=== PATIENT | male | born 1940 | race Caucasian/White ===

== ENCOUNTER 2016-08-05 13:48 | Inpatient (IN) | payer OTHER ==
--- NOTE | ~2016-08-05 | DS ---
Discharge Summary [facility] [address] [facility] [place]. [address] NAME: CIPRIANO BOOKER : 42 STATUS : DIS IN PAT#: [id number] AGE: 76 ADM/REG DATE : 08/05/16 MR#: [id number] REPORT SERV DATE: 08/24/16 DICTATED BY: PHAN LEYVA DATE: 08/22/16 REPORT STATUS : Draft TRANSCRIBED BY: LUKASZ DATE: 08/22/16 Data Collection from hospitalization DISCHARGE DIAGNOSES: 1. Severe peripheral vascular disease, status post right smfup-lsu-xzai amputation secondary to ischemia/right lower extremity. 2. End-stage renal disease, on hemodialysis. 3. Anemia secondary to end-stage renal disease. 4. Type 2 diabetes mellitus - not controlled. 5. Debility/gait impairment, status post right above-knee amputation. 6. Coronary artery disease. 7. History of congestive heart failure. 8. History of melanoma - status post resection. 9. History of hyperlipidemia. 10.Chronic obstructive pulmonary disease. 11.Tobacco use. 12.History of remote myocardial infarction. 13.Peptic ulcer disease. 14.History of left vocal cord cancer, status post radiation. 15.Osteoarthritis. CONSULTATIONS: 1. Nestor Harper M.D. 2. CALI Lomax. PROCEDURES PERFORMED: 1. Antegrade right superficial femoral artery catheterization with right lower extremity runoff, selective catheterization of the right SFA and popliteal artery with direct arteriography, atherectomy of the right superficial femoral artery with CSI 2.0 catheter with secondary angioplasty 6 x 200 balloon on 08/05/2016. 2. Right jzntd-fww-dzvk amputation on 08/08/2016. PATHOLOGY: Right lower extremity above-knee amputation - gangrenous necrosis secondary to occlusive calcified peripheral vascular disease with organizing thrombosis, skin and soft tissue and marrow margins - negative for neutrophilic infiltration. MEDICATIONS: Aspirin 81 mg daily; Lipitor 20 mg at bedtime; PhosLo three tablets with meals; Coreg 3.125 mg at bedtime; ferrous sulfate 650 mg twice a day; heparin 5000 units subcutaneously every 12 hours as instructed; NovoLog injection insulin as instructed; Claritin 10 mg at bedtime; Mag-Ox 400 mg on Sundays, Tuesdays, , and Saturdays; Habitrol 21 mg topically at 9:00 p.m.; Prilosec 40 mg daily; thalidomide 100 mg every evening; Dialyvite one tablet every day at bedtime; Tylenol 650 mg twice a day as needed; Benadryl 25 mg at bedtime as needed; ProAir one puff via inhaler twice a day as needed; Ultram 25 mg at bedtime as needed; and Levaquin 500 mg every 48 hours for four doses. CONDITION AT DISCHARGE: Stable. DISPOSITION: The patient was discharged to [facility] on a diabetic Discharge Summary [address] [address] NAME: CIPRIANO BOOKER : 42 STATUS : DIS IN PAT#: [id number] AGE: 76 ADM/REG DATE : 08/05/16 MR#: [id number] REPORT SERV DATE: 08/24/16 DICTATED BY: PHAN LEYVA DATE: 08/22/16 REPORT STATUS : Draft TRANSCRIBED BY: LUKASZ DATE: 08/22/16 diet with activities as instructed. HOSPITAL COURSE: This is a 76-year-old man who presented with evidence of critical limb ischemia of the right lower extremity with inability to sleep, rest pain, and gangrene of the foot. Treatment options were discussed and it was elected to proceed with surgical intervention. He was admitted to the hospital at this time for further evaluation and treatment. Upon admission, he was taken to the operating room where he underwent the above-mentioned procedure. He tolerated this well, and there were no complications. The following day, the right leg was ischemic. His thigh was cool. His calf was cold as well as his foot. Capillary refill was greater than 3 seconds. The patient was seen by Saba Loya. Creatinine level was 4.04. Hemodialysis therapy was going to be performed. He does have end-stage renal disease. On 08/08/2016, the patient was taken to the operating room where he underwent the above-mentioned procedure. He tolerated this well, and there were no complications. The patient was seen by Dr. Nestor Harper, he had been asked to see the patient regarding medical management. Creatinine level was now 5.67. The patient was receiving aspirin and Plavix. He denied any complaints of anxiety. He is a diabetic, but is diet controlled. White count was 12. Chest x-ray had shown interval improvement in central venous congestion. We would monitor his renal function. The patient was going to be placed on a diabetic renal diet. Medical management continued. The patient was currently on Ancef. He did have a low-grade fever of 100.4. Protonix was continued. The head of his bed would be kept elevated at greater than 30 degrees. He was felt to be at risk for aspiration. Urinalysis was pending. On 08/09/2016, hemodialysis therapy was performed. He said that his legs felt better. His pain had resolved from the ischemic foot. He was evaluated by Occupational and Physical Therapy. On 08/10/2016, he had no new complaints. Creatinine was 4.28. White blood cell count was 12. Over the next couple of days, discharge planning was performed. His incisions remained clean, dry, and intact. On 08/12/2016, hemodialysis therapy was performed. He had no new complaints. Discharge instructions were given. Due to his improved and stable condition, he was discharged to [facility] with the above-stated instructions. Information collected by: Anita Ospina I submit the above information as my discharge summary. MARTIN/LUKASZ Phan Leyva M.D. / [id number] CC: Mayo Dick M.D. Jessica Craig [facility] Discharge Summary [address] [address] NAME: CIPRIANO BOOKER : 41 STATUS : DIS IN PAT#: [id number] AGE: 76 ADM/REG DATE : 08/05/16 MR#: [id number] REPORT SERV DATE: 08/24/16 DICTATED BY: PHAN LEYVA DATE: 08/22/16 REPORT STATUS : Draft TRANSCRIBED BY: LUKASZ DATE: 08/22/16 [facility]
--- NOTE | ~2016-08-05 | OP ---
Record Of Operation [facility] [address] [place]. [address] NAME: CIPRIANO BOOKER : 42 STATUS : DIS IN PAT#: [id number] AGE: 76 ADM/REG DATE : 08/05/16 MR#: [id number] REPORT SERV DATE: 08/15/16 DICTATED BY: PHAN LEYVA DATE: 08/15/16 REPORT STATUS : Draft TRANSCRIBED BY: MODL DATE: 08/15/16 DATE OF PROCEDURE: 08/05/2016 PREPROCEDURE DIAGNOSIS: Critical limb ischemia of the right foot, right lower extremity with gangrene right foot. POSTOPERATIVE DIAGNOSES: 1. Multilevel superficial femoral artery occlusion. 2. Multilevel tibial obstruction, unreconstructable. PROCEDURES PERFORMED: 1. Antegrade right superficial femoral artery catheterization with right lower extremity runoff. 2. Selective catheterization of the right SFA and popliteal artery with direct arteriography. 3. Atherectomy of the right superficial femoral artery with a CSI 2.0 catheter with secondary angioplasty 6 x 200 balloon. ANESTHESIA: Local MAC. COMPLICATIONS: None. INDICATION FOR PROCEDURE: Secondary to this very pleasant 76-year-old gentleman presenting with evidence of critical limb ischemia of the right lower extremity with inability to sleep, rest pain, and gangrene of the foot. Recommendations were made for arteriography to further define his peripheral vascular repair if appropriate. Risks and benefits were discussed. Consent was obtained. DETAILS OF PROCEDURE: The patient was brought to the endovascular operating room, placed in supine position, prepped and draped in routine sterile fashion with attention to the right lower extremity. The right superficial femoral artery was then catheterized with ultrasound guidance. Pictures were taken and placed on the chart. Wire was then placed followed by a sheath. Arteriogram was then demonstrated patent proximal SFA, but the mid segment and distal SFA as well as proximal popliteal had evidence of complete segmental obstructions in the order of 95% to 99%. The wire and catheter were then advanced across the popliteal level, arteriogram demonstrated poor flow. Heparinization was given, 3000 units. A bipolar wire was then placed, and atherectomy was performed of the mid and distal SFA and proximal popliteal with a CSI catheter 2.0 with standard technique followed by a 6 x 200 balloon angioplasty. This adequately opened the mid and distal SFA and proximal popliteal. At this point, the catheter was then advanced to the below-knee popliteal segment. Arteriogram demonstrated occlusion of the anterior tibial artery very proximally, tibioperoneal trunk was occluded. There was no flow seen in the distal branch other than a very diminutive peroneal artery which was highly obstructed. At this point, I felt that there was literally no way to progress further for limb salvage for this patient. At this point, wires, catheters, and sheaths were then removed. The right groin was closed with Angio-Seal. The patient tolerated the procedure well. Record Of Operation [facility] [address] [facility] [place]. [address] NAME: CIPRIANO BOOKER : 42 STATUS : DIS IN PAT#: [id number] AGE: 76 ADM/REG DATE : 08/05/16 MR#: [id number] REPORT SERV DATE: 08/15/16 DICTATED BY: PHAN LEYVA DATE: 08/15/16 REPORT STATUS : Draft TRANSCRIBED BY: LUKASZ DATE: 08/15/16 CL/LUKASZ Phan Leyva M.D. / [id number] CC: Mayo Dick M.D.
--- NOTE | ~2016-08-05 | OP ---
Record Of Operation [facility] [address] [place]. [address] NAME: CIPRIANO BOOKER : 42 STATUS : DIS IN PAT#: [id number] AGE: 76 ADM/REG DATE : 08/05/16 MR#: [id number] REPORT SERV DATE: 08/15/16 DICTATED BY: PHAN LEYVA DATE: 08/15/16 REPORT STATUS : Draft TRANSCRIBED BY: MODL DATE: 08/15/16 DATE OF PROCEDURE: 08/08/2016 PREOPERATIVE DIAGNOSIS: Gangrene right lower extremity unreconstructable vascular disease. POSTOPERATIVE DIAGNOSIS: Gangrene right lower extremity unreconstructable vascular disease. PROCEDURE PERFORMED: Right qrjde-idb-dxbp amputation. SURGEON: Phan Leyva M.D. ANESTHESIA: General. COMPLICATIONS: None. INDICATION FOR PROCEDURE: Secondary to this very pleasant 76-year-old gentleman presenting with progressive gangrene of the right foot despite attempted endovascular reconstruction. Recommendations were made for right ypnbg-nhc-tyci amputation. Risks and benefits discussed. Consent was obtained. DETAILS OF PROCEDURE: The patient was brought to the endovascular operating room, placed in supine position, prepped and draped in routine sterile fashion with attention to the bilateral groin region and the entire right lower leg. A curvilinear incision was then made just above the level of the knee after general anesthesia was introduced. Dissection proceeded down through the skin, subcu tissues to the femur. Femur was then skeletonized. Femur was then divided in two with a good result in a 90-degree angle. Next, the neurovascular bundle was then clamped proximally, distally, and divided, and the posterior flap was then created. At this point, the specimen was passed off the field. The arterial and venous segments were then doubly ligated individually as well as the sciatic nerve was then ligated and then anesthetized with 1% lidocaine. The bone was then rasped smooth. All bleeding was arrested with a cautery, and then the leg was washed copiously. A second round of cauterization was then performed drawing up minor bleeding. A myopexy was then performed over top of the femur to cover the bone adequately with multiple Vicryl sutures. Next, the deep layers were then closed with Vicryl and then aziza were then placed along the wound. The wound had adequate hemostasis. Standard dressings were applied. The patient tolerated the procedure well. CL/MODL Phan Leyva M.D. / [id number] Record Of Operation [address] [address] NAME: CIPRIANO BOOKER : 42 STATUS : DIS IN PAT#: [id number] AGE: 76 ADM/REG DATE : 08/05/16 MR#: [id number] REPORT SERV DATE: 08/15/16 DICTATED BY: PHAN LEYVA DATE: 08/15/16 REPORT STATUS : Draft TRANSCRIBED BY: LUKASZ DATE: 08/15/16 CC: Mayo Dick M.D.
--- NOTE | ~2016-08-05 | CN ---
Consultation Report [facility] [address] [place]. [address] NAME: CIPRIANO BOOKER : 42 STATUS : ADM IN PAT#: [id number] AGE: 76 ADM/REG DATE : 08/05/16 MR#: [id number] REPORT SERV DATE: 08/08/16 DICTATED BY: GRACIE CARRANZA DATE: 08/08/16 REPORT STATUS : Draft TRANSCRIBED BY: MODL DATE: 08/08/16 CONSULT FOR MEDICAL MANAGEMENT. DATE OF CONSULTATION: CHIEF COMPLAINT: Right msffa-ykr-xklu amputation. HISTORY OF PRESENT ILLNESS: The patient is a 76 years old elderly male with a history of severe peripheral vascular disease, was admitted on 08/05/[address] Phan Leyva, vascular surgeon, for revascularization of his right lower extremity peripheral vascular disease with claudication. The patient continued to have an ischemic right lower extremity, therefore, underwent right auwsw-tck-usjh amputation today on 08/08/2016. The patient with history of COPD, congestive heart, coronary artery disease status post CABG, and diabetes. We were consulted by Dr. Leyva for medical management of this patient. ALLERGIES: INCLUDE GUAIFENESIN, DEXTROMETHORPHAN (FROM ROBAFEN DM COUGH/CHEST CONGESTION). MEDICATIONS: Currently on 1. Aspirin 81 mg daily. 2. Atorvastatin 20 mg q.h.s. 3. Calcium acetate 2000 mg p.o. with meals. 4. Coreg 3.125 mg p.o. q.h.s. 5. Ancef 2 g IV q.8 hours x2 doses. 6. Plavix 75 mg daily. 7. Diazepam 2.5 mg IV q.6. 8. Lovenox 30 mg subcu q.24 hours. 9. Famotidine 20 mg p.o. q.a.m. 10.Ferrous sulfate 600 mg p.o. b.i.d. 11.Insulin aspart sliding scale level 1. 12.Loratadine 10 mg q.h.s. 13.Magnesium oxide 400 mg p.o. Friday, Friday, , Friday, at 2100 hours. 14.Multivitamin without minerals one tab p.o. q.h.s. 15.Protonix 40 mg p.o. before breakfast. PAST MEDICAL HISTORY: To include: 1. End-stage renal disease, on hemodialysis, with [facility] since 2013. 2. Anemia secondary to chronic kidney disease. 3. Coronary artery disease, status post CABG in 2013 with mitral valve replacement. 4. Congestive heart failure. 5. Type 2 diabetes, diet controlled. 6. History of melanoma with resection. Consultation Report [facility] [id number] [place]. [address] NAME: CIPRIANO BOOKER : 42 STATUS : ADM IN PAT#: [id number] AGE: 76 ADM/REG DATE : 08/05/16 MR#: [id number] REPORT SERV DATE: 08/08/16 DICTATED BY: GRACIE CARRANZA DATE: 08/08/16 REPORT STATUS : Draft TRANSCRIBED BY: LUKASZ DATE: 08/08/16 7. History of hyperlipidemia. 8. COPD with ongoing tobacco abuse. 9. Peptic ulcer disease. 10.History of left vocal cord cancer, status post radiation. 11.Remote myocardial infarction. 12.Osteoarthritis. 13.Debility. SURGICAL HISTORY: 1. CABG and mitral valve repair in 2013, fistula for dialysis in 2013, right lower leg stent. 2. Cataract surgery bilaterally. 3. Skin cancer removal. 4. AOG right lower extremity runoff on 01/11/2008. 5. AOG/SISAL PICKER/stent on left SFA, ATHR/SISAL PICKER left LOIS on 04/03/2012. 6. Right brachial/axillary bovine AV graft on 10/21/2012. 7. Removal of IJ PermCath/AOG/ATHR/SISAL PICKER right SFA/SISAL PICKER of LOIS on 01/12/2013. 8. Right AVF graft banding on 01/30/2016. SOCIAL HISTORY: The patient is a /disabled, retired jade. Continues to smoke, now down to one pack every two weeks, previously smoked two and a half packs per day for the last 62 years. The patient denies any alcohol or illicit drug use. FAMILY HISTORY: Multiple family members with diabetes and hypertension. No history of end- stage renal disease. Mother with diabetes. Father with stroke. REVIEW OF SYSTEMS: The patient denies any problems with his eyesight, but complained of being hard of hearing. The patient denies any shortness of breath. He reports he has congestive heart failure and COPD, but does not use home oxygen. The patient reports slightly sleepy today since he had had his surgery, but denies any shortness of breath. Denies any chest pain. Denies any nausea, vomiting, or abdominal pain. The patient denies any issue with bleeding. The patient complained of status post right nyoyb-igr-cibn amputation soreness. Patient with history of end-stage renal disease since 2013 and has been receiving hemodialysis Friday, Friday, Friday from [place], [place]. The patient's daughter reports the patient did receive hemodialysis yesterday in [facility] and is scheduled for another hemodialysis tomorrow. The patient reports some history of GERD. The patient reports he is currently on aspirin and Plavix. The patient denies any complaint of any anxiety issue. The patient is diabetic, but diet controlled. VITAL SIGNS: Temp of 98.5, BP is 136/60, saturation O2 of 95% on 2 L, weight of 78.24 kg, Consultation Report [facility] [address] [facility] [place]. [address] NAME: CIPRIANO BOOKER : 42 STATUS : ADM IN [facility]#: [id number] AGE: 76 ADM/REG DATE : 08/05/16 MR#: [id number] REPORT SERV DATE: 08/08/16 DICTATED BY: GRACIE CARRANZA DATE: 08/08/16 REPORT STATUS : Draft TRANSCRIBED BY: LUKASZ DATE: 08/08/16 BMI 26.2. LABORATORY DATA: Lab work on 08/07/2016 revealed sodium 133, potassium 6.0, chloride of 98, CO2 of 28, BUN 52, creatinine of 5.67, glucose of 68, and GFR of 9. Mag of 2.3, potassium 6.9, WBC 12.0, hemoglobin 8.6, hematocrit 27.0, and platelet of 301. Chest x-ray on 08/05/2016, interval improvement in central venous congestion. Continued cardiomegaly status post CABG. PHYSICAL EXAMINATION: GENERAL: The patient is a pleasant elderly male, in no acute distress. Noted somewhat lethargic, but easily arousable and able to answer most questions with some assistance from the patient's daughter at the bedside. HEENT: Oral mucosa moist. Noted lesion on the left side of his eyes. Eyes PERRL. Nonicteric bilaterally. NECK: No JVD noted. CHEST: No deformity noted. Noted old sternal scar from prior history of CABG. LUNGS: Clear to auscultation bilaterally, but diminished breath sounds at both bases. CV: Regular rate and rhythm. Normal S1, S2. No murmurs noted. ABDOMEN: Soft, nontender. Bowel sounds x4 quadrants. : Not assessed. EXTREMITIES: Right dnjdk-bup-hjzq amputation with dressing dry and intact. Left lower extremity with no edema. Noted palpable pedal pulses and a popliteal pulse. Did not assess femoral pulse. Noted muscle atrophy of the left lower extremity. Bilateral upper extremity again with muscle atrophy. Noted multiple lesions on bilateral arms with a large lesion on the dorsal surface of the left hand and lateral surface of the left hand and multiple other small areas in the bilateral upper extremities and lower extremities. ASSESSMENT: 1. Chronic obstructive pulmonary disease with history of tobacco abuse. 2. Type 2 diabetes, diet controlled. 3. Anemia secondary to end-stage renal disease. 4. End-stage renal disease, on hemodialysis. 5. History of severe peripheral vascular disease with failed right lower extremity revascularization, now status post right edpda-tyg-vmui amputation on 08/08/2016. 6. Debility and now status post right jizbj-caz-ongu amputation. 7. Coronary artery disease, status post CABG and mitral valve replacement. 8. Congestive heart failure, undetermined. 9. Multiple melanoma. The patient will follow up with Dermatology for scheduled removal. PLAN: Appreciate consult by Dr. Leyva. Reviewed current medications. Consulted with pharmacy regarding the patient's DVT prophylaxis. Given the patient's end-stage renal disease, we will change Lovenox to heparin subcu q.12 hours. Continue nasal cannula O2 at this time. Monitor respiratory rate and sat O2 spot check. The patient is at risk for further hypoxia given history of COPD with recent surgery. We will encourage the patient to use incentive spirometer to encourage deep breathing. The patient is at risk for pneumonia. Consultation Report [address] [place]. [address] NAME: CIPRIANO BOOKER : 42 STATUS : ADM IN [facility]#: [id number] AGE: 76 ADM/REG DATE : 08/05/16 MR#: [id number] REPORT SERV DATE: 08/08/16 DICTATED BY: GRACIE CARRANZA DATE: 08/08/16 REPORT STATUS : Draft TRANSCRIBED BY: MODL DATE: 08/08/16 The patient is being followed by Nephrology. Is scheduled for hemodialysis tomorrow. We will monitor renal function. The patient's potassium was 6.0 yesterday. We will ensure the patient is on a diabetic renal diet, currently only on diabetic diet. The patient is at risk for cardiac arrhythmia and volume overload. The patient is pending referral for PT/OT, and the patient's daughter wishes the patient to receive further rehab at [facility] when ready. The patient with a history of coronary artery disease. Continue medical management. Continue to monitor telemetry. Continue to monitor any signs and symptoms of acute coronary syndrome. The patient is at risk for acute myocardial infarction. The patient with history of CHF. Continue medical management. Monitor for any signs and symptoms of acute CHF exacerbation. The patient currently on Ancef, status post surgery. Is only receiving two doses. We will monitor vital signs. The patient did have a low-grade temp this morning of 100.4. We will also monitor laboratory studies. The patient is at risk for infection/osteomyelitis. Continue Protonix for history of GERD as well as GI prophylaxis. Keep head of bed greater than 30 degrees. The patient is at risk for aspiration. DICTATED BY: Sandy Scott NP CLP/MODL Gracie Carranza M.D. / [id number] CC: Mayo Dick M.D.
[~2016-08-05 13:48] MED LIST: ASA5GR PO; ASAB PO; BEN25 PO; BENICAR20 PO; BUM2 PO; CLARIT10 PO; CORDARONE PO; COREG3 PO; COREG6 PO; DAILYVITE PO; DIALYVITE PO; DIALYVITE800 MG PO; FERROUS SULF325 M1 PO; FLUCON1 PO; HUMALOG SC; HYDROCHLOROT25 MG PO; IRON PO; IRON325 MG PO; LANTUS SC; LEVAQUIN5T PO; LIPITOR20 PO; MAGOX4 PO; MULTIPLE VIT PO; NEUR400 PO; NORV5 PO; NOVOLOG SC; PHOSLO PO; PRILO PO; PRILOSEC40 MG PO; PRIN5 PO; PROAIR HFA INH; T PO; THALOMID100 MG PO; ULTRAM50 PO; VIT B12; VITC500 PO; ZOCOR20 PO
[2016-08-05 14:56] LABS: BASOPHILS 0.8 %; BASOPHILS ABSOLUTE 0.06 10/3/uL (0.0-0.16); EOSINOPHILS 1.9 %; EOSINOPHILS ABSOLUTE 0.15 10/3/uL (0.0-0.53); HEMOGLOBIN 9.7 g/dL (13.6-17.8); IMMATURE GRANULOCYTES 0.5 %; IMMATURE GRANULOCYTES ABSOLUTE 0.04 10/3/uL (0.0-0.11); LYMPHOCYTES ABSOLUTE 1.04 10/3/uL (0.67-4.30); MEAN CORPUS HGB CONC 32.2 g/dL (32.0-36.0); MEAN CORPUSCULAR HEMOGLOB 31.8 pg (26.0-34.0); MEAN CORPUSCULAR VOLUME 98.7 fL (80-100); MEAN PLATELET VOLUME 8.9 fL (9.2-13.0); MONOCYTES 11.9 %; MONOCYTES ABSOLUTE 0.95 10/3/uL (0.21-1.20); NEUTROPHILS 71.9 %; NEUTROPHILS ABSOLUTE 5.75 10/3/uL (2.02-8.40); PLATELET COUNT 289 10/3/uL (150-400); RED CELL COUNT 3.05 10/6/uL (4.7-6.1)
[2016-08-05 14:58] LABS: HEMATOCRIT 30.1 % (40.0-51.0); RBC DISTRIBUTION WIDTH 14.9 % (12.0-16.0)
[2016-08-05 14:59] LABS: MANUAL DIFF NO %
[2016-08-05 15:06] LABS: INTERNATIONAL NORMAL RATI 1.1 UNITS (-); PROTIME (NOT ORD) 14.5 SEC (12.0-14.5)
[2016-08-05 15:09] LABS: CALCIUM, SERUM 8.5 MG/DL (8.5-10.4); CHLORIDE, SERUM 102 MMOL/L (96-112); POTASSIUM, SERUM 3.9 MMOL/L (3.5-5.3); SODIUM, SERUM 141 MMOL/L (135-148)
[2016-08-05 15:10] LABS: BUN (BLOOD UREA NITROGEN) 19 MG/DL (6-23); CO2 (CARBON DIOXIDE) 32 MMOL/L (24-34); CREATININE 3.04 MG/DL (0.70-1.30); GFR AFRICAN AMERICAN 22 ML/MIN (>=60); GFR NON AFRICAN AMERICAN 19 ML/MIN (>=60); GLUCOSE, SERUM 82 MG/DL (60-99)
[2016-08-06 05:56] LABS: BASOPHILS 0.8 %; BASOPHILS ABSOLUTE 0.07 10/3/uL (0.0-0.16); EOSINOPHILS 1.5 %; EOSINOPHILS ABSOLUTE 0.13 10/3/uL (0.0-0.53); HEMATOCRIT 28.3 % (40.0-51.0); HEMOGLOBIN 8.7 g/dL (13.6-17.8); IMMATURE GRANULOCYTES 0.3 %; IMMATURE GRANULOCYTES ABSOLUTE 0.03 10/3/uL (0.0-0.11); LYMPHOCYTES 10.8 %; LYMPHOCYTES ABSOLUTE 0.94 10/3/uL (0.67-4.30); MANUAL DIFF NO %; MEAN CORPUS HGB CONC 30.7 g/dL (32.0-36.0); MEAN CORPUSCULAR HEMOGLOB 30.4 pg (26.0-34.0); MONOCYTES 12.2 %; MONOCYTES ABSOLUTE 1.06 10/3/uL (0.21-1.20); NEUTROPHILS 74.4 %; NEUTROPHILS ABSOLUTE 6.44 10/3/uL (2.02-8.40); PLATELET COUNT 284 10/3/uL (150-400); RBC DISTRIBUTION WIDTH 14.5 % (12.0-16.0); RED CELL COUNT 2.86 10/6/uL (4.7-6.1); WHITE BLOOD CELLS 8.7 10/3/uL (4.5-10.5)
[2016-08-06 06:04] LABS: BUN (BLOOD UREA NITROGEN) 31 MG/DL (6-23); CALCIUM, SERUM 8.5 MG/DL (8.5-10.4); CHLORIDE, SERUM 102 MMOL/L (96-112); CO2 (CARBON DIOXIDE) 29 MMOL/L (24-34); CREATININE 4.04 MG/DL (0.70-1.30); GFR AFRICAN AMERICAN 16 ML/MIN (>=60); GFR NON AFRICAN AMERICAN 14 ML/MIN (>=60); GLUCOSE, SERUM 88 MG/DL (60-99); POTASSIUM, SERUM 4.8 MMOL/L (3.5-5.3); SODIUM, SERUM 138 MMOL/L (135-148)
[2016-08-07 13:12] LABS: BASOPHILS 0.4 %; BASOPHILS ABSOLUTE 0.05 10/3/uL (0.0-0.16); EOSINOPHILS 0.4 %; EOSINOPHILS ABSOLUTE 0.05 10/3/uL (0.0-0.53); HEMOGLOBIN 8.6 g/dL (13.6-17.8); IMMATURE GRANULOCYTES 0.3 %; IMMATURE GRANULOCYTES ABSOLUTE 0.04 10/3/uL (0.0-0.11); LYMPHOCYTES 6.5 %; LYMPHOCYTES ABSOLUTE 0.78 10/3/uL (0.67-4.30); MANUAL DIFF NO %; MEAN CORPUS HGB CONC 31.9 g/dL (32.0-36.0); MEAN CORPUSCULAR VOLUME 97.5 fL (80-100); MEAN PLATELET VOLUME 8.8 fL (9.2-13.0); MONOCYTES ABSOLUTE 1.44 10/3/uL (0.21-1.20); NEUTROPHILS 80.4 %; NEUTROPHILS ABSOLUTE 9.64 10/3/uL (2.02-8.40); PLATELET COUNT 301 10/3/uL (150-400); RED CELL COUNT 2.77 10/6/uL (4.7-6.1)
[2016-08-07 13:33] LABS: ALBUMIN 2.3 G/DL (3.5-5.0); CALCIUM, SERUM 8.6 MG/DL (8.5-10.4); CHLORIDE, SERUM 98 MMOL/L (96-112); CO2 (CARBON DIOXIDE) 28 MMOL/L (24-34)
[2016-08-07 13:34] LABS: BUN (BLOOD UREA NITROGEN) 52 MG/DL (6-23); CREATININE 5.67 MG/DL (0.70-1.30); GFR AFRICAN AMERICAN 10 ML/MIN (>=60); GFR NON AFRICAN AMERICAN 9 ML/MIN (>=60)
[2016-08-07 13:35] LABS: GLUCOSE, SERUM 68 MG/DL (60-99); PHOSPHORUS, SERUM 6.9 MG/DL (2.5-4.5); SODIUM, SERUM 133 MMOL/L (135-148)
[2016-08-08 16:13] LABS: ASCORBIC ACID (UR NOT ORDER) NEG (NEG); BILIRUBIN, URINE NEGATIVE (NEG); KETONE, URINE NEGATIVE (NEG); LEUKOCYTE ESTERASE(NOT OR LARGE (NEG); WBC (NOT ORDERED) (RFLEX) > 182 (0-5)
[2016-08-09 08:48] LABS: BASOPHILS 0.5 %; BASOPHILS ABSOLUTE 0.06 10/3/uL (0.0-0.16); EOSINOPHILS 0.4 %; EOSINOPHILS ABSOLUTE 0.05 10/3/uL (0.0-0.53); HEMATOCRIT 26.1 % (40.0-51.0); HEMOGLOBIN 8.2 g/dL (13.6-17.8); IMMATURE GRANULOCYTES 0.2 %; IMMATURE GRANULOCYTES ABSOLUTE 0.03 10/3/uL (0.0-0.11); LYMPHOCYTES 4.9 %; LYMPHOCYTES ABSOLUTE 0.62 10/3/uL (0.67-4.30); MEAN CORPUS HGB CONC 31.4 g/dL (32.0-36.0); MEAN CORPUSCULAR HEMOGLOB 30.3 pg (26.0-34.0); MEAN CORPUSCULAR VOLUME 96.3 fL (80-100); MEAN PLATELET VOLUME 8.9 fL (9.2-13.0); MONOCYTES 15.4 %; MONOCYTES ABSOLUTE 1.96 10/3/uL (0.21-1.20); NEUTROPHILS 78.6 %; NEUTROPHILS ABSOLUTE 9.99 10/3/uL (2.02-8.40); PLATELET COUNT 348 10/3/uL (150-400); RBC DISTRIBUTION WIDTH 14.1 % (12.0-16.0); RED CELL COUNT 2.71 10/6/uL (4.7-6.1); WHITE BLOOD CELLS 12.7 10/3/uL (4.5-10.5)
[2016-08-09 08:49] LABS: MANUAL DIFF NO %
[2016-08-09 09:07] LABS: ALBUMIN 2.1 G/DL (3.5-5.0); CALCIUM, SERUM 8.7 MG/DL (8.5-10.4); CHLORIDE, SERUM 99 MMOL/L (96-112); CO2 (CARBON DIOXIDE) 27 MMOL/L (24-34); PHOSPHORUS, SERUM 7.1 MG/DL (2.5-4.5); POTASSIUM, SERUM 5.3 MMOL/L (3.5-5.3); SODIUM, SERUM 135 MMOL/L (135-148)
[2016-08-09 09:10] LABS: BUN (BLOOD UREA NITROGEN) 45 MG/DL (6-23); CREATININE 6.18 MG/DL (0.70-1.30); GFR AFRICAN AMERICAN 9 ML/MIN (>=60); GFR NON AFRICAN AMERICAN 8 ML/MIN (>=60); GLUCOSE, SERUM 91 MG/DL (60-99)
[2016-08-10 04:45] LABS: HEMATOCRIT 26.6 % (40.0-51.0); HEMOGLOBIN 8.2 g/dL (13.6-17.8); MEAN CORPUS HGB CONC 30.8 g/dL (32.0-36.0); MEAN CORPUSCULAR HEMOGLOB 29.8 pg (26.0-34.0); MEAN CORPUSCULAR VOLUME 96.7 fL (80-100); MEAN PLATELET VOLUME 8.8 fL (9.2-13.0); PLATELET COUNT 374 10/3/uL (150-400); RBC DISTRIBUTION WIDTH 14.1 % (12.0-16.0); RED CELL COUNT 2.75 10/6/uL (4.7-6.1)
[2016-08-10 04:46] LABS: MANUAL DIFF YES %
[2016-08-10 04:51] LABS: ALBUMIN 2.2 G/DL (3.5-5.0); CALCIUM, SERUM 9.3 MG/DL (8.5-10.4); CHLORIDE, SERUM 100 MMOL/L (96-112); CO2 (CARBON DIOXIDE) 31 MMOL/L (24-34); GLUCOSE, SERUM 86 MG/DL (60-99); POTASSIUM, SERUM 4.3 MMOL/L (3.5-5.3); SODIUM, SERUM 137 MMOL/L (135-148)
[2016-08-10 04:52] LABS: BUN (BLOOD UREA NITROGEN) 27 MG/DL (6-23); CREATININE 4.28 MG/DL (0.70-1.30); GFR AFRICAN AMERICAN 15 ML/MIN (>=60); GFR NON AFRICAN AMERICAN 13 ML/MIN (>=60); PHOSPHORUS, SERUM 4.6 MG/DL (2.5-4.5)
[2016-08-10 07:00] LABS: EOSINOPHILS 1 %; EOSINOPHILS ABSOLUTE (CALC) 0.12 10/3/uL (0.0-0.53); LYMPHOCYTES 4 %; LYMPHOCYTES ABSOLUTE (CALC) 0.48 10/3/uL (0.67-4.30); MONOCYTES 12 %; MONOCYTES ABSOLUTE (CALC) 1.44 10/3/uL (0.21-1.20); NEUTROPHILS ABSOLUTE (CALC) 9.96 10/3/uL (2.02-8.40); PLATELET ESTIMATE ADQ (ADEQUATE); RBC MORPHOLOGY NORM (NORMAL); SEGMENTED NEUTROPHIL (0) 83 %; TOTAL NUCLEATED CELLS 100
[2016-08-11 06:18] LABS: HEMATOCRIT 24.4 % (40.0-51.0); HEMOGLOBIN 7.7 g/dL (13.6-17.8); MEAN CORPUS HGB CONC 31.6 g/dL (32.0-36.0); MEAN CORPUSCULAR HEMOGLOB 29.6 pg (26.0-34.0); MEAN CORPUSCULAR VOLUME 93.8 fL (80-100); MEAN PLATELET VOLUME 8.5 fL (9.2-13.0); PLATELET COUNT 380 10/3/uL (150-400); RBC DISTRIBUTION WIDTH 14.1 % (12.0-16.0); WHITE BLOOD CELLS 10.9 10/3/uL (4.5-10.5)
[2016-08-11 06:20] LABS: MANUAL DIFF YES %
[2016-08-11 06:34] LABS: ALBUMIN 1.9 G/DL (3.5-5.0); CALCIUM, SERUM 9.3 MG/DL (8.5-10.4); CHLORIDE, SERUM 98 MMOL/L (96-112); CO2 (CARBON DIOXIDE) 28 MMOL/L (24-34); PHOSPHORUS, SERUM 5.1 MG/DL (2.5-4.5); POTASSIUM, SERUM 4.9 MMOL/L (3.5-5.3); SODIUM, SERUM 133 MMOL/L (135-148)
[2016-08-11 06:36] LABS: BUN (BLOOD UREA NITROGEN) 45 MG/DL (6-23); CREATININE 6.69 MG/DL (0.70-1.30); GFR AFRICAN AMERICAN 9 ML/MIN (>=60); GFR NON AFRICAN AMERICAN 7 ML/MIN (>=60); GLUCOSE, SERUM 107 MG/DL (60-99)
[2016-08-11 06:43] LABS: BASOPHILS 1 %; BASOPHILS ABSOLUTE (CALC) 0.11 10/3/uL (0.0-0.16); EOSINOPHILS 2 %; EOSINOPHILS ABSOLUTE (CALC) 0.22 10/3/uL (0.0-0.53); IMMATURE GRANS ABSOLUTE (CALC) 0.11 10/3/uL (0.0-0.11); LYMPHOCYTES 4 %; LYMPHOCYTES ABSOLUTE (CALC) 0.44 10/3/uL (0.67-4.30); METAMYELOCYTES 1 %; MONOCYTES 10 %; MONOCYTES ABSOLUTE (CALC) 1.09 10/3/uL (0.21-1.20); NEUTROPHILS ABSOLUTE (CALC) 8.94 10/3/uL (2.02-8.40); PLATELET ESTIMATE ADQ (ADEQUATE); RBC MORPHOLOGY NORM (NORMAL); SEGMENTED NEUTROPHIL (0) 82 %; TOTAL NUCLEATED CELLS 100
[2016-08-12 08:19] LABS: BASOPHILS 0.8 %; BASOPHILS ABSOLUTE 0.08 10/3/uL (0.0-0.16); EOSINOPHILS ABSOLUTE 0.19 10/3/uL (0.0-0.53); HEMATOCRIT 23.8 % (40.0-51.0); HEMOGLOBIN 7.6 g/dL (13.6-17.8); IMMATURE GRANULOCYTES 0.7 %; IMMATURE GRANULOCYTES ABSOLUTE 0.07 10/3/uL (0.0-0.11); LYMPHOCYTES 9.8 %; LYMPHOCYTES ABSOLUTE 0.93 10/3/uL (0.67-4.30); MEAN CORPUS HGB CONC 31.9 g/dL (32.0-36.0); MEAN CORPUSCULAR HEMOGLOB 29.6 pg (26.0-34.0); MEAN CORPUSCULAR VOLUME 92.6 fL (80-100); MEAN PLATELET VOLUME 8.4 fL (9.2-13.0); MONOCYTES 17.3 %; MONOCYTES ABSOLUTE 1.64 10/3/uL (0.21-1.20); NEUTROPHILS 69.4 %; NEUTROPHILS ABSOLUTE 6.56 10/3/uL (2.02-8.40); PLATELET COUNT 409 10/3/uL (150-400); RED CELL COUNT 2.57 10/6/uL (4.7-6.1); WHITE BLOOD CELLS 9.5 10/3/uL (4.5-10.5)
[2016-08-12 08:20] LABS: MANUAL DIFF NO %
[2016-08-12 08:33] LABS: ALBUMIN 1.9 G/DL (3.5-5.0); CALCIUM, SERUM 9.9 MG/DL (8.5-10.4); CHLORIDE, SERUM 96 MMOL/L (96-112); CO2 (CARBON DIOXIDE) 25 MMOL/L (24-34); GFR AFRICAN AMERICAN 7 ML/MIN (>=60); GFR NON AFRICAN AMERICAN 6 ML/MIN (>=60); GLUCOSE, SERUM 100 MG/DL (60-99); POTASSIUM, SERUM 5.6 MMOL/L (3.5-5.3); SODIUM, SERUM 132 MMOL/L (135-148)
[2016-08-12 08:35] LABS: BUN (BLOOD UREA NITROGEN) 66 MG/DL (6-23); CREATININE 8.35 MG/DL (0.70-1.30)
== END 2016-08-12 19:41 | DRG 270 ==
LOC: SDC 13:48 → SDC/OF 19:54 → 2SO 20:51
PROVIDERS: Internal Medicine Nephrology; Registered Nurse; Specialist; Surgery
PROC: B41F1ZZ Fluoroscopy of Right Lower Extremity Arteries using Low Osmolar Contrast (ICD-10-PCS; 2016-08-05)
PROC: 04CK3ZZ Extirpation of Matter from Right Femoral Artery, Percutaneous Approach (ICD-10-PCS; 2016-08-05 15:15)
PROC: 047K3ZZ Dilation of Right Femoral Artery, Percutaneous Approach (ICD-10-PCS; 2016-08-05 15:15)
PROC: 0Y6C0Z3 Detachment at Right Upper Leg, Low, Open Approach (ICD-10-PCS; principal; 2016-08-08 06:45)
DX: E11.51 Type 2 diabetes mellitus with diabetic peripheral angiopathy without gangrene (principal); N18.6 End stage renal disease; I13.2 Hypertensive heart and chronic kidney disease with heart failure and with stage 5 chronic kidney disease, or end stage renal disease; E11.22 Type 2 diabetes mellitus with diabetic chronic kidney disease; I70.212 Atherosclerosis of native arteries of extremities with intermittent claudication, left leg; K21.9 Gastro-esophageal reflux disease without esophagitis; J44.9 Chronic obstructive pulmonary disease, unspecified; I50.9 Heart failure, unspecified; I25.10 Atherosclerotic heart disease of native coronary artery without angina pectoris; E78.5 Hyperlipidemia, unspecified; M19.90 Unspecified osteoarthritis, unspecified site; F17.220 Nicotine dependence, chewing tobacco, uncomplicated; D63.1 Anemia in chronic kidney disease; I25.2 Old myocardial infarction; Z95.1 Presence of aortocoronary bypass graft; Z88.8 Allergy status to other drugs, medicaments and biological substances; Z99.2 Dependence on renal dialysis; Z95.2 Presence of prosthetic heart valve; Z79.01 Long term (current) use of anticoagulants; Z85.820 Personal history of malignant melanoma of skin; Z87.11 Personal history of peptic ulcer disease; Z85.21 Personal history of malignant neoplasm of larynx; Z98.890 Other specified postprocedural states; Z82.49 Family history of ischemic heart disease and other diseases of the circulatory system; Z83.3 Family history of diabetes mellitus
CPT/HCPCS: 27590; 36415; 37225; 71010; 75710; 75774; 80048; 80069; 81001; 82962; 83735; 85025; 85610; 86850; 86900; 86901; 86920; 87077; 87086; 87186; 88307; 88311; 93005; 97162-GP; 97166-GO; 97535-GO; A9270-GY; C1724; C1725; C1760; C1769; C1894; G0257; J0690; J1956; J2250; J2405; J3010; P9016; P9047; Q9967